=== PATIENT | female | born 1930 | race Caucasian/White ===

== ENCOUNTER 2016-05-09 13:26 | Inpatient (IN) | payer OTHER, BC ==
[~2016-05-09] VITALS: Ht 147.3 cm; Wt 97.1 kg
[~2016-05-09 13:26] MED LIST: ALBUTEROL2.5 MG/3 M IH; AMILORIDE HCL5 MG PO; AMLODIPINE BESYL5 MG PO; AMOXICILLIN875 MG PO; BICARSIM FORTE125 MG PO; BREO ELLIPTA 21 EACH IH; BREO ELLIPTA I1 EACH IH; BUMETANIDE1 MG PO; BUMETANIDE2 MG PO; BUMEX1 MG PO; CALCIUM 600 +1 EA10 PO; CALCIUM 600 +1 EA11 PO; CALCIUM 600 +1 EAC2 PO; CALCIUM 600 +1 EAC7 PO; CARDIZEM120 MG PO; CEFDINIR300 MG PO; CELEXA10 MG PO; CLARITIN,ALAVAR10 MG PO; CLARITIN10 MG PO; CLODERM TP; Cardizem CD,Cartia X PO; Claritin,Alavart PO; DALIRESP500 MCG PO; DUONEB 2.5-0.5 M3 ML AEROSOL; DUONEB 2.5-0.5 M3 ML IH; DuoNeb IH; ELIQUIS2.5 MG PO; EPOGEN,PRO20000 UNIT IV; EPOGEN,PRO20000 UNIT SC; EXTRA STRENGTH500 M1 PO; FENTANYL1 EAC5 TD; FERROUS SULFAT325 MG PO; FLONASE16 G1 BOTH NARES; FLORASTOR250 MG PO; FUROSEMIDE20 MG PO; GAS FREE125 MG PO; IMDUR30 MG PO; IMURAN50 MG PO; Imdur PO; K-DUR20 MEQ; K-DUR20 MEQ PO; KERLONE10 MG PO; KLOR-CON M2020 MEQ PO; LASIX20 MG PO; LASIX40 MG PO; LEVAQUIN250 MG PO; LEVO-T125 MCG PO; LEVO-T137 MCG PO; LEVOTHYROXINE100 MCG PO; LOMOTIL TABLET1 EACH PO; LORATADINE10 M2 PO; Lasix PO; Lomotil,Lonox PO; METHENAMINE HIPP1 G1 PO; METHENAMINE HIPP1 GM PO; MICRO-K10 ME2 PO; MIRALAX17 GM PO; MUCINEX600 MG PO; MYCOSTATIN 100,60 ML PO; Micro-K,K-Tab,K-Dur, PO; Monopril PO; OMEGA-31000 MG PO; OMEPRAZOLE40 M1 PO; ONE DAILY1 EAC2 PO; OSCAL, OYSTER500 MG; OXYCODONE HCL10 MG PO; OXYCODONE HCL15 MG PO; Oscal 500 w/Vitamin PO; PAIN RELIEF650 MG PO; PERCOCET 5/31 TABLET PO; PRILOSEC40 MG PO; PROBIOTIC FORM1 EAC1 PO; PROCRIT10000 UNI1 SC; REFRESH OPTIVE10 ML BOTH EYES; REFRESH TEARS15 ML BOTH EYES; ROBITUSSIN DM118 ML PO; SENOKOT S,PE1 TABLET PO; SIMETHICONE125 M1 PO; TEARS NATURALE-15 ML BOTH EYES; TYLENOL ARTHRI650 MG PO; TYLENOL EXTRA500 MG PO; TYLENOL REGULA325 MG PO; Tears Naturale II,Ar BOTH EYES; Theragran PO; Tylenol Extra Streng PO; XOPENEX1.25 MG/3 IH; Xarelto PO; ZOFRAN4 MG PO
[2016-05-09 14:35] LABS: BASOPHIL COUNT 0.1 K/uL (0-0.1); EOSINOPHIL (%) 0.4 % (0-5); EOSINOPHIL COUNT 0.1 K/uL (0-0.3); IMMATURE GRANULOCYTE (%) 2.4 % (0.0-0.7); IMMATURE GRANULOCYTE COUNT 0.7 K/uL; INSTRUMENT ABS NEUTROPHIL CT 27.7 K/uL; LYMPHOCYTE COUNT 0.8 K/uL (1.0-2.8); MEAN PLAT.VOLUME 8.6 uM^3 (9.5-12.4); MONOCYTE (%) 2.9 % (3-12); MONOCYTE COUNT 0.9 K/uL (0-0.8); NEUTROPHIL (%) 91.3 % (45-76); NEUTROPHIL COUNT 27.7 K/uL (1.8-6.4); PLATELET COUNT 640 K/uL (156-360)
[2016-05-09 14:44] LABS: CHLORIDE 95 mEq/L (99-109); POTASSIUM 3.9 mEq/L (3.7-5.4)
[2016-05-09 14:45] LABS: HEMATOCRIT 30.7 % (36.0-46.0); MCH 26.6 PG (29.0-34.0); MCHC 29.6 G/DL (30.0-36.0); MCV 89.8 FL (83-99); RBC DIS.WIDTH-CV 15.1 % (11.8-14.6); RBC DIS.WIDTH-SD 50.1 % (39-53); RED BLOOD COUNT 3.42 M/uL (3.80-5.20); SODIUM 136 mEq/L (136-147)
[2016-05-09 14:46] LABS: GLUCOSE 124 mg/dL (70-99)
[2016-05-09 14:48] LABS: ANION GAP 11 MEQ/L (2-14); WHITE BLOOD COUNT 30.3 K/uL (4.1-10.2)
[2016-05-09 14:50] LABS: GFR ESTIMATE (CALCULATED) > 59 mL/min/
[2016-05-09 14:51] LABS: UREA NITROGEN (BUN) 26 mg/dL (9-23)
[2016-05-09 15:42] LABS: ADD MIUA? YES; BILIRUBIN NEGATIVE; BLOOD NEGATIVE; COLOR YELLOW ((YELLOW)); GLUCOSE (STRIP) NEGATIVE; KETONES NEGATIVE; LEUKOCYTES TRACE; NITRITE NEGATIVE; PROTEIN (STRIP) NEGATIVE; SPECIFIC GRAVITY 1.009 (1.000-1.030); UROBILINOGEN 0.2 MG/DL (0.2-1.0)
[2016-05-09 15:48] LABS: BACTERIA NONE SEEN /HPF; EPITHELIAL CELLS RARE /HPF; HYALINE CASTS 0-5 /LPF; MUCUS TRACE /LPF; RED BLOOD CELLS 0-5 /HPF (0-5); WHITE BLOOD CELLS 0-5 /HPF (0-5)
[2016-05-09] MEDS ORDERED: BENGAY VANISHIN57 GM TP (16:37)
[2016-05-09] MEDS ORDERED: B COMPLETE1 EACH PO (16:39)
[2016-05-09] MEDS ORDERED: BUMEX2 MG PO ×2 (16:42)
[2016-05-09] MEDS ORDERED: LEVO-T150 MCG PO (16:46)
[2016-05-09] MEDS ORDERED: KLOR-CON M2020 MEQ PO (16:48)
[2016-05-09] MEDS ORDERED: PROCRIT2000 UNIT1 IV (16:50)
[2016-05-09] MEDS ORDERED: TYLENOL EXTRA500 MG PO (16:51)
[2016-05-09] MEDS ORDERED: CYANOCOBALAM1000 MCG PO (16:52)
[2016-05-09] MEDS ORDERED: CIPRO500 MG PO (16:54)
[2016-05-09] MEDS ORDERED: ELIQUIS2.5 MG PO (16:55)
[2016-05-09] MEDS ORDERED: DUONEB 2.5-0.5 M3 ML AEROSOL (17:02)
[2016-05-09] MEDS ORDERED: CEPACOL SORE T1 EAC9 MM (17:02)
[2016-05-09] MEDS ORDERED: MIRALAX17 GM PO (17:03)
[2016-05-09] MEDS ORDERED: ALUM-MAG HYDRO360 ML PO (17:04)
[2016-05-09] MEDS ORDERED: NYSTATIN100000 UN1 PO (17:05)
[2016-05-09] MEDS ORDERED: BUMEX1 MG PO (17:27)
[2016-05-09 19:35] VITALS: BP 134/70
[2016-05-10 00:02] VITALS: BP 140/68
[2016-05-10 04:04] VITALS: BP 144/66
[2016-05-10 06:44] LABS: HEMATOCRIT 30.8 % (36.0-46.0); MCH 26.6 PG (29.0-34.0); MCHC 29.5 G/DL (30.0-36.0); MCV 90.1 FL (83-99); MEAN PLAT.VOLUME 8.8 uM^3 (9.5-12.4); PLATELET COUNT 672 K/uL (156-360); RBC DIS.WIDTH-CV 15.3 % (11.8-14.6); RBC DIS.WIDTH-SD 50.7 % (39-53); RED BLOOD COUNT 3.42 M/uL (3.80-5.20); WHITE BLOOD COUNT 27.1 K/uL (4.1-10.2)
[2016-05-10 08:12] VITALS: BP 117/79
[2016-05-10 10:58] LABS: ABS NEUTROPHIL COUNT 25.5; EOSINOPHIL ABS CT 0.1; EOSINOPHILS 0.5 % (0-5.0); INSTRUMENT ABS NEUTROPHIL CT 24.3 K/uL; LYMPHOCYTES 3.5 % (15.0-45.0)
[2016-05-10 11:09] VITALS: BP 102/57
[2016-05-10 15:59] LABS: IRON 28 MCG/DL (35-150)
[2016-05-10 16:37] VITALS: BP 125/69
[2016-05-10 20:00] VITALS: BP 114/69
[2016-05-11 04:37] VITALS: BP 121/76
[2016-05-11 07:50] LABS: BASOPHIL COUNT 0.1 K/uL (0-0.1); EOSINOPHIL (%) 0.9 % (0-5); EOSINOPHIL COUNT 0.2 K/uL (0-0.3); HEMATOCRIT 28.9 % (36.0-46.0); IMMATURE GRANULOCYTE (%) 1.9 % (0.0-0.7); IMMATURE GRANULOCYTE COUNT 0.5 K/uL; INSTRUMENT ABS NEUTROPHIL CT 21.5 K/uL; LYMPHOCYTE COUNT 1.1 K/uL (1.0-2.8); MCHC 30.4 G/DL (30.0-36.0); MCV 88.7 FL (83-99); MONOCYTE (%) 4.4 % (3-12); MONOCYTE COUNT 1.1 K/uL (0-0.8); NEUTROPHIL COUNT 21.5 K/uL (1.8-6.4); RBC DIS.WIDTH-CV 15.5 % (11.8-14.6); RBC DIS.WIDTH-SD 49.8 % (39-53); RED BLOOD COUNT 3.26 M/uL (3.80-5.20); WHITE BLOOD COUNT 24.5 K/uL (4.1-10.2)
[2016-05-11 07:59] VITALS: BP 122/70
[2016-05-11 08:44] LABS: PLAT.SUFFICIENCY INCREASED
[2016-05-11 08:55] LABS: PLATELET COUNT UNABLE TO REPORT K/uL (156-360)
[2016-05-11 11:19] VITALS: BP 106/58
[2016-05-11 15:05] VITALS: BP 145/69
[2016-05-11 19:37] VITALS: BP 111/54
[2016-05-11 23:26] VITALS: BP 129/63
[2016-05-12 03:45] VITALS: BP 132/86
[2016-05-12 07:30] VITALS: BP 150/73
[2016-05-12 07:53] LABS: ANION GAP 9 MEQ/L (2-14); CHLORIDE 96 MEQ/L (99-109); GFR ESTIMATE (CALCULATED) > 59 mL/min/; GLUCOSE 95 mg/dL (70-99); POTASSIUM 3.5 MEQ/L (3.7-5.4); SAMPLE HEMOLYSIS CHECK 0; SAMPLE ICTERIC CHECK 0; SAMPLE LIPEMIA CHECK 0; SODIUM 141 MEQ/L (136-147); UREA NITROGEN (BUN) 24 mg/dL (9-23)
[2016-05-12 08:16] LABS: BASOPHIL COUNT 0.1 K/uL (0-0.1); EOSINOPHIL (%) 0.5 % (0-5); EOSINOPHIL COUNT 0.1 K/uL (0-0.3); HEMATOCRIT 31.2 % (36.0-46.0); IMMATURE GRANULOCYTE (%) 1.8 % (0.0-0.7); IMMATURE GRANULOCYTE COUNT 0.5 K/uL; INSTRUMENT ABS NEUTROPHIL CT 22.9 K/uL; MCH 27.1 PG (29.0-34.0); MCHC 30.4 G/DL (30.0-36.0); MCV 89.1 FL (83-99); MEAN PLAT.VOLUME 8.8 uM^3 (9.5-12.4); NEUTROPHIL (%) 89.5 % (45-76); NEUTROPHIL COUNT 22.9 K/uL (1.8-6.4); RBC DIS.WIDTH-CV 15.4 % (11.8-14.6); WHITE BLOOD COUNT 25.6 K/uL (4.1-10.2)
[2016-05-12 11:00] VITALS: BP 119/65
[2016-05-12 13:15] VITALS: BP 140/69
[2016-05-12 19:33] VITALS: BP 135/60
[2016-05-12 23:20] VITALS: BP 113/57
[2016-05-13 03:13] VITALS: BP 152/69
[2016-05-13 07:52] LABS: HEMATOCRIT 28.1 % (36.0-46.0); MCH 26.8 PG (29.0-34.0); MCHC 29.9 G/DL (30.0-36.0); MCV 89.8 FL (83-99); RBC DIS.WIDTH-CV 15.6 % (11.8-14.6); RBC DIS.WIDTH-SD 50.9 % (39-53); RED BLOOD COUNT 3.13 M/uL (3.80-5.20); WHITE BLOOD COUNT 24.1 K/uL (4.1-10.2)
[2016-05-13 07:59] LABS: ANION GAP 7 MEQ/L (2-14); CHLORIDE 95 MEQ/L (99-109); DIRECT BILIRUBIN 0.1 mg/dL (0.0-0.3); SAMPLE HEMOLYSIS CHECK 1; SAMPLE ICTERIC CHECK 0; SAMPLE LIPEMIA CHECK 0; SODIUM 138 MEQ/L (136-147); TOTAL BILIRUBIN 0.4 MG/DL (0.0-1.0)
[2016-05-13 08:05] LABS: ALKALINE PHOSPHATASE 143 IU/L (3-129); GFR ESTIMATE (CALCULATED) > 59 mL/min/; GLUCOSE 87 mg/dL (70-99); UREA NITROGEN (BUN) 21 mg/dL (9-23)
[2016-05-13 09:02] VITALS: BP 125/65
[2016-05-13 10:44] LABS: MEAN PLAT.VOLUME 9.1 uM^3 (9.5-12.4)
[2016-05-13 10:45] LABS: PLATELET COUNT 583 K/uL (156-360)
[2016-05-13 11:30] VITALS: BP 145/92
[2016-05-13 17:00] VITALS: BP 106/55
[2016-05-13 20:00] VITALS: BP 113/57
[2016-05-14] VITALS (7 sets, daily range): BP systolic 109–145; BP diastolic 56–78
[2016-05-15 04:13] VITALS: BP 126/59
[2016-05-15 07:02] LABS: ANION GAP 8 MEQ/L (2-14); CHLORIDE 94 MEQ/L (99-109); GFR ESTIMATE (CALCULATED) > 59 mL/min/; GLUCOSE 88 mg/dL (70-99); SAMPLE HEMOLYSIS CHECK 1; SAMPLE ICTERIC CHECK 0; SAMPLE LIPEMIA CHECK 0; SODIUM 136 MEQ/L (136-147); UREA NITROGEN (BUN) 23 mg/dL (9-23)
[2016-05-15 07:03] LABS: POTASSIUM 4.1 MEQ/L (3.7-5.4)
[2016-05-15 08:37] VITALS: BP 161/67
[2016-05-15 08:50] LABS: MCH 26.6 PG (29.0-34.0); MCHC 29.7 G/DL (30.0-36.0); MCV 89.8 FL (83-99); MEAN PLAT.VOLUME 8.8 uM^3 (9.5-12.4); PLATELET COUNT 631 K/uL (156-360); RBC DIS.WIDTH-CV 15.4 % (11.8-14.6); RBC DIS.WIDTH-SD 50.4 % (39-53); RED BLOOD COUNT 3.34 M/uL (3.80-5.20); WHITE BLOOD COUNT 22.2 K/uL (4.1-10.2)
[2016-05-15 11:54] VITALS: BP 110/59
[2016-05-15 17:02] VITALS: BP 121/60
[2016-05-15 20:02] VITALS: BP 114/61
[2016-05-16] VITALS: BP 99/54
[2016-05-16 04:18] VITALS: BP 129/69
[2016-05-16 08:15] VITALS: BP 130/68
[2016-05-16 16:13] VITALS: BP 121/63
[2016-05-16 16:42] LABS: Flow Number of Markers 22 (()); Flow Spec Viability 99 % (()); Flow Specimen Type PERIPHERAL BLOOD (())
[2016-05-16 20:00] VITALS: BP 117/57
[2016-05-17] VITALS: BP 132/67
[2016-05-17 04:00] VITALS: BP 146/77
[2016-05-17 07:55] VITALS: BP 124/63
[2016-05-17 11:04] VITALS: BP 111/59
[2016-05-17] MEDS ORDERED: OXYCODONE HCL15 MG PO (13:14)
[2016-05-17] MEDS ORDERED: FENTANYL1 EAC5 TD (13:14)
[2016-05-17] MEDS ORDERED: PERCOCET 5/31 TABLET PO (13:14)
[2016-05-17] MEDS ORDERED: OXYCODONE HCL10 MG PO (13:14)
[2016-05-17 15:30] VITALS: BP 97/51
== END 2016-05-17 20:03 | DRG 375 ==
LOC: EME 13:26 → EDOF 17:00 → 5SOUTH 17:00
PROVIDERS: Emergency Medicine; Internal Medicine; Nurse Practitioner Adult Health
DX: C18.2 Malignant neoplasm of ascending colon (principal); I13.0 Hypertensive heart and chronic kidney disease with heart failure and stage 1 through stage 4 chronic kidney disease, or unspecified chronic kidney disease; I50.32 Chronic diastolic (congestive) heart failure; N18.3 Chronic kidney disease, stage 3 (moderate); D72.829 Elevated white blood cell count, unspecified; D47.2 Monoclonal gammopathy; D50.9 Iron deficiency anemia, unspecified; J44.9 Chronic obstructive pulmonary disease, unspecified; I48.2 Chronic atrial fibrillation; Z79.01 Long term (current) use of anticoagulants; E66.01 Morbid (severe) obesity due to excess calories; Z68.44 Body mass index [BMI] 60.0-69.9, adult; K57.30 Diverticulosis of large intestine without perforation or abscess without bleeding; I71.2 Thoracic aortic aneurysm, without rupture; K21.9 Gastro-esophageal reflux disease without esophagitis; M10.9 Gout, unspecified; M81.0 Age-related osteoporosis without current pathological fracture; M19.90 Unspecified osteoarthritis, unspecified site; M06.9 Rheumatoid arthritis, unspecified; Z74.01 Bed confinement status; Z96.641 Presence of right artificial hip joint; Z87.891 Personal history of nicotine dependence
CPT/HCPCS: 71020; 71250; 71270; 74176; 80048; 80076; 81003; 82378; 83540; 83605; 84466; 85007; 85025; 85027; 85060; 85730; 87040; 88184 90; 88185 90; 88189 90; 88305; 88341 TC; 88342 TC; 93970; 93971; 94640; 94640 76; 94799; 99202; 99281; 99285; J1644; J2405

== ENCOUNTER 2016-07-19 04:21 | Inpatient (IN) | payer OTHER, BC ==
[~2016-07-19] VITALS: Ht 152.4 cm; Wt 99.1 kg
[~2016-07-19 04:21] MED LIST changes: +ALUM-MAG HYDRO360 ML PO; +B COMPLETE1 EACH PO; +BENGAY VANISHIN57 GM TP; +BUMEX2 MG PO; +CEPACOL SORE T1 EAC9 MM; +CIPRO500 MG PO; +CYANOCOBALAM1000 MCG PO; +LEVO-T150 MCG PO; +NYSTATIN100000 UN1 PO; +PROCRIT2000 UNIT1 IV
[2016-07-19 04:39] LABS: HEMATOCRIT 31.1 % (36.0-46.0); MCH 28.1 PG (29.0-34.0); MCHC 30.2 G/DL (30.0-36.0); MCV 93.1 FL (83-99); MEAN PLAT.VOLUME 8.5 uM^3 (9.5-12.4); PLATELET COUNT 639 K/uL (156-360); RBC DIS.WIDTH-CV 16.1 % (11.8-14.6); RBC DIS.WIDTH-SD 55.8 % (39-53); RED BLOOD COUNT 3.34 M/uL (3.80-5.20); WHITE BLOOD COUNT 16.7 K/uL (4.1-10.2)
[2016-07-19 04:48] LABS: CHLORIDE 96 mEq/L (99-109); POTASSIUM 3.7 mEq/L (3.7-5.4); SODIUM 137 mEq/L (136-147)
[2016-07-19 04:50] LABS: GLUCOSE 215 mg/dL (70-99); INTER. NORMALIZED RATIO 1.1; PROTHROMBIN TIME 10.9 (9.2-11.2); PTT 28.2 (25-32)
[2016-07-19 04:51] LABS: ANION GAP 11 MEQ/L (2-14)
[2016-07-19 04:52] LABS: TOTAL BILIRUBIN 0.3 mg/dL (0.0-1.0)
[2016-07-19 04:53] LABS: ALKALINE PHOSPHATASE 188 IU/L (3-129)
[2016-07-19 04:54] LABS: GFR ESTIMATE (CALCULATED) > 59 mL/min/
[2016-07-19 04:55] LABS: UREA NITROGEN (BUN) 17 mg/dL (9-23)
[2016-07-19 04:57] LABS: LIPASE 11 U/L (1.0-51.0)
[2016-07-19 05:05] LABS: BASE EXCESS 7.5 mEq/L (-3 to +3); BICARBONATE 32.6 mEq/L (22-26); CARBOXY HGB 1.7 % (0-5); COMMENTS - BLOOD GASES C+; DEVICE PB840; FI02 100 %; METHEMOGLOBIN 1.3 % (0-1.5); MODE SPON; PCO2 48 mm Hg (35-45); PEEP 5 CM/H20; PO2 274 mm Hg (80-100); PRES. SUPPORT 15 CM/H2O; SITE RR; TOTAL RESP RATE 15 resp/min; pH 7.44 (7.35-7.45)
[2016-07-19 05:35] LABS: ADD MIUA? YES; BILIRUBIN NEGATIVE; BLOOD SMALL; COLOR YELLOW ((YELLOW)); GLUCOSE (STRIP) NEGATIVE; KETONES NEGATIVE; LEUKOCYTES LARGE; NITRITE NEGATIVE; PROTEIN (STRIP) NEGATIVE; SPECIFIC GRAVITY 1.008 (1.000-1.030); UROBILINOGEN 0.2 MG/DL (0.2-1.0)
[2016-07-19 05:56] LABS: BACTERIA 2+ /HPF; CASTS PRESENT /LPF; CRYSTALS NONE SEEN; EPITHELIAL CELLS 2+ /HPF; MUCUS 1+ /LPF; UCUL ADDED? YES; WHITE BLOOD CELLS TNTC /HPF (0-5)
[2016-07-19 06:02] LABS: HYALINE CASTS 0-5 /LPF
[2016-07-19 11:02] LABS: TROP-I INTERPRETATION INDETERMINATE; TROPONIN-I 0.42 ng/mL (0.0-0.30)
[2016-07-19] MEDS ORDERED: LIDODERM 5% P1 PATCH TD (11:11)
[2016-07-19] MEDS ORDERED: PANTOPRAZOLE SO40 MG PO (11:12)
[2016-07-19] MEDS ORDERED: EPOGEN,PRO20000 UNIT IM (11:14)
[2016-07-19] MEDS ORDERED: VITAMIN B-12250 MCG PO (11:15)
[2016-07-19] MEDS ORDERED: OXYCODONE HCL10 MG PO (11:17)
[2016-07-19] MEDS ORDERED: CARDIZEM30 MG PO (11:17)
[2016-07-19] MEDS ORDERED: CYCLOBENZAPRINE10 MG PO (11:19)
[2016-07-19] MEDS ORDERED: PERCOCET 5/31 TABLET PO (11:21)
[2016-07-19] MEDS ORDERED: TUMS500 MG PO (11:22)
[2016-07-19] MEDS ORDERED: SIMETHICONE80 MG PO (11:22)
[2016-07-19 12:45] VITALS: BP 127/58
[2016-07-19 17:14] LABS: TROP-I INTERPRETATION POSITIVE
[2016-07-19 17:43] VITALS: BP 96/60
[2016-07-19 18:36] LABS: METH RESISTANT S AUREUS PCR POSITIVE (NEGATIVE)
[2016-07-19 18:51] LABS: PROBE CHECK PASS
[2016-07-19 20:15] VITALS: BP 106/57
[2016-07-19 21:21] LABS: POINT-OF-CARE METER ID UU13113781
[2016-07-19 23:15] LABS: TROP-I INTERPRETATION POSITIVE; TROPONIN-I 1.83 ng/mL (0.0-0.30)
[2016-07-20 00:38] VITALS: BP 114/51
[2016-07-20 05:18] VITALS: BP 116/69
[2016-07-20 06:34] LABS: TROP-I INTERPRETATION POSITIVE; TROPONIN-I 1.37 ng/mL (0.0-0.30)
[2016-07-20 07:19] LABS: HEMATOCRIT 28.8 % (36.0-46.0); MCH 28.2 PG (29.0-34.0); MCHC 30.6 G/DL (30.0-36.0); MCV 92.3 FL (83-99); MEAN PLAT.VOLUME 9.1 uM^3 (9.5-12.4); PLATELET COUNT 592 K/uL (156-360); RBC DIS.WIDTH-CV 16.1 % (11.8-14.6); RBC DIS.WIDTH-SD 54.9 % (39-53); RED BLOOD COUNT 3.12 M/uL (3.80-5.20)
[2016-07-20 07:25] LABS: WHITE BLOOD COUNT 11.6 K/uL (4.1-10.2)
[2016-07-20 07:44] LABS: ANION GAP 14 MEQ/L (2-14); CHLORIDE 93 MEQ/L (99-109); GFR ESTIMATE (CALCULATED) 45 mL/min/; GLUCOSE 130 mg/dL (70-99); POTASSIUM 4.3 MEQ/L (3.7-5.4); SAMPLE HEMOLYSIS CHECK 0; SAMPLE ICTERIC CHECK 0; SAMPLE LIPEMIA CHECK 0; SODIUM 136 MEQ/L (136-147); UREA NITROGEN (BUN) 21 mg/dL (9-23)
[2016-07-20 07:50] VITALS: BP 117/66
[2016-07-20 12:35] VITALS: BP 98/55
[2016-07-20 16:50] VITALS: BP 112/73
[2016-07-20 19:49] VITALS: BP 121/66
[2016-07-21 01:00] VITALS: BP 124/70
[2016-07-21 05:12] VITALS: BP 128/73
[2016-07-21 08:09] VITALS: BP 129/75
[2016-07-21 11:04] LABS: HEMATOCRIT 31.6 % (36.0-46.0); MCH 28.3 PG (29.0-34.0); MCHC 30.4 G/DL (30.0-36.0); MCV 93.2 FL (83-99); MEAN PLAT.VOLUME 9.1 uM^3 (9.5-12.4); NRBC (%) 0.2 /100 WBC (0-0); PLATELET COUNT 532 K/uL (156-360); RBC DIS.WIDTH-CV 16.1 % (11.8-14.6); RBC DIS.WIDTH-SD 55.2 % (39-53); RED BLOOD COUNT 3.39 M/uL (3.80-5.20); WHITE BLOOD COUNT 13.2 K/uL (4.1-10.2)
[2016-07-21 11:34] LABS: ANION GAP 15 MEQ/L (2-14); CHLORIDE 96 MEQ/L (99-109); POTASSIUM 4.5 MEQ/L (3.7-5.4); SAMPLE HEMOLYSIS CHECK 0; SAMPLE ICTERIC CHECK 0; SAMPLE LIPEMIA CHECK 0; SODIUM 137 MEQ/L (136-147)
[2016-07-21 11:40] LABS: GFR ESTIMATE (CALCULATED) 45 mL/min/; GLUCOSE 185 mg/dL (70-99); UREA NITROGEN (BUN) 29 mg/dL (9-23)
[2016-07-21 11:50] VITALS: BP 118/71
[2016-07-21 17:30] VITALS: BP 122/69
[2016-07-21 19:45] VITALS: BP 128/58
[2016-07-22 00:01] VITALS: BP 118/60
[2016-07-22 04:47] VITALS: BP 124/58
[2016-07-22 05:57] LABS: EOSINOPHIL (%) 0.1 % (0-5); HEMATOCRIT 26.8 % (36.0-46.0); IMMATURE GRANULOCYTE (%) 1.9 % (0.0-0.7); IMMATURE GRANULOCYTE COUNT 0.2 K/uL; INSTRUMENT ABS NEUTROPHIL CT 9.8 K/uL; LYMPHOCYTE COUNT 0.3 K/uL (1.0-2.8); MCH 28.6 PG (29.0-34.0); MCHC 30.2 G/DL (30.0-36.0); MCV 94.7 FL (83-99); MONOCYTE (%) 3.3 % (3-12); MONOCYTE COUNT 0.4 K/uL (0-0.8); NEUTROPHIL (%) 91.8 % (45-76); NEUTROPHIL COUNT 9.8 K/uL (1.8-6.4); NRBC (%) 0.4 /100 WBC (0-0); RBC DIS.WIDTH-CV 16.4 % (11.8-14.6); RBC DIS.WIDTH-SD 56.5 % (39-53); RED BLOOD COUNT 2.83 M/uL (3.80-5.20); WHITE BLOOD COUNT 10.6 K/uL (4.1-10.2)
[2016-07-22 07:33] LABS: MEAN PLAT.VOLUME 9.3 uM^3 (9.5-12.4); PLAT.SUFFICIENCY ADEQUATE; PLATELET COUNT 451 K/uL (156-360)
[2016-07-22 07:53] LABS: ANION GAP 13 MEQ/L (2-14); CHLORIDE 96 MEQ/L (99-109); GFR ESTIMATE (CALCULATED) 41 mL/min/; GLUCOSE 126 mg/dL (70-99); POTASSIUM 3.9 MEQ/L (3.7-5.4); SAMPLE HEMOLYSIS CHECK 0; SAMPLE ICTERIC CHECK 0; SAMPLE LIPEMIA CHECK 0; SODIUM 138 MEQ/L (136-147); UREA NITROGEN (BUN) 29 mg/dL (9-23)
[2016-07-22 08:49] VITALS: BP 118/82
[2016-07-22 10:55] LABS: DIGOXIN 2.5 ng/mL (0.8-2.0)
[2016-07-22 11:37] VITALS: BP 112/68
[2016-07-22 15:49] LABS: C DIFF TOXIN POSITIVE (NEGATIVE)
[2016-07-22 15:51] LABS: PROBE CHECK PASS
[2016-07-22 15:57] VITALS: BP 122/64
[2016-07-22 21:35] VITALS: BP 118/58
[2016-07-23 01:06] VITALS: BP 118/58
[2016-07-23 04:50] VITALS: BP 129/59
[2016-07-23 07:16] LABS: ANION GAP 15 MEQ/L (2-14); CHLORIDE 94 MEQ/L (99-109); GFR ESTIMATE (CALCULATED) 41 mL/min/; POTASSIUM 4.2 MEQ/L (3.7-5.4); SAMPLE HEMOLYSIS CHECK 1; SAMPLE ICTERIC CHECK 0; SAMPLE LIPEMIA CHECK 0; SODIUM 136 MEQ/L (136-147); UREA NITROGEN (BUN) 38 mg/dL (9-23)
[2016-07-23 07:23] LABS: GLUCOSE 80 mg/dL (70-99)
[2016-07-23 08:15] VITALS: BP 116/64
[2016-07-23 12:17] VITALS: BP 110/62
[2016-07-23 16:30] VITALS: BP 108/64
[2016-07-23 19:30] VITALS: BP 132/64
[2016-07-24] VITALS (7 sets, daily range): BP systolic 121–148; BP diastolic 55–72
[2016-07-24 06:11] LABS: HEMATOCRIT 29.2 % (36.0-46.0); MCH 28.2 PG (29.0-34.0); MCHC 29.8 G/DL (30.0-36.0); MCV 94.5 FL (83-99); MEAN PLAT.VOLUME 8.9 uM^3 (9.5-12.4); NRBC (%) 1.1 /100 WBC (0-0); PLATELET COUNT 454 K/uL (156-360); RBC DIS.WIDTH-CV 16.4 % (11.8-14.6); RBC DIS.WIDTH-SD 56.1 % (39-53); RED BLOOD COUNT 3.09 M/uL (3.80-5.20)
[2016-07-24 06:14] LABS: ANION GAP 13 MEQ/L (2-14); CHLORIDE 95 MEQ/L (99-109); GFR ESTIMATE (CALCULATED) 45 mL/min/; POTASSIUM 3.8 MEQ/L (3.7-5.4); SAMPLE HEMOLYSIS CHECK 0; SAMPLE ICTERIC CHECK 0; SAMPLE LIPEMIA CHECK 0; SODIUM 138 MEQ/L (136-147); UREA NITROGEN (BUN) 45 mg/dL (9-23)
[2016-07-24 06:16] LABS: GLUCOSE 118 mg/dL (70-99)
[2016-07-25 03:52] VITALS: BP 140/65
[2016-07-25 06:49] LABS: ANION GAP 12 MEQ/L (2-14); CHLORIDE 92 MEQ/L (99-109); GFR ESTIMATE (CALCULATED) 45 mL/min/; GLUCOSE 109 mg/dL (70-99); POTASSIUM 3.6 MEQ/L (3.7-5.4); SAMPLE HEMOLYSIS CHECK 0; SAMPLE ICTERIC CHECK 0; SAMPLE LIPEMIA CHECK 0; SODIUM 137 MEQ/L (136-147); UREA NITROGEN (BUN) 50 mg/dL (9-23)
[2016-07-25 08:02] LABS: DIGOXIN 1.3 ng/mL (0.8-2.0)
[2016-07-25 08:47] LABS: HEMATOCRIT 32.9 % (36.0-46.0); MCH 27.8 PG (29.0-34.0); MCHC 30.1 G/DL (30.0-36.0); MCV 92.4 FL (83-99); MEAN PLAT.VOLUME 8.6 uM^3 (9.5-12.4); NRBC (%) 0.7 /100 WBC (0-0); PLATELET COUNT 577 K/uL (156-360); RBC DIS.WIDTH-CV 16.6 % (11.8-14.6); RED BLOOD COUNT 3.56 M/uL (3.80-5.20); WHITE BLOOD COUNT 24.3 K/uL (4.1-10.2)
[2016-07-25 08:55] VITALS: BP 151/67
[2016-07-25 11:45] VITALS: BP 144/67
[2016-07-25 16:00] VITALS: BP 164/70
[2016-07-25 19:26] LABS: ADD MIUA? YES; BILIRUBIN NEGATIVE; BLOOD NEGATIVE; COLOR STRAW ((YELLOW)); GLUCOSE (STRIP) NEGATIVE; KETONES NEGATIVE; LEUKOCYTES SMALL; NITRITE NEGATIVE; PROTEIN (STRIP) NEGATIVE; SPECIFIC GRAVITY 1.006 (1.000-1.030); UROBILINOGEN 0.2 MG/DL (0.2-1.0)
[2016-07-25 19:48] LABS: BACTERIA RARE /HPF; BUDDING YEAST 1+; EPITHELIAL CELLS RARE /HPF; HYALINE CASTS 0-5 /LPF; MUCUS NONE SEEN /LPF; RED BLOOD CELLS TNTC /HPF (0-5); UCUL ADDED? NO
[2016-07-25 20:00] VITALS: BP 130/60
[2016-07-25 23:55] VITALS: BP 133/62
[2016-07-26 04:04] VITALS: BP 167/77
[2016-07-26 08:00] VITALS: BP 140/65
[2016-07-26 09:54] LABS: HEMATOCRIT 32.4 % (36.0-46.0); MCH 28.5 PG (29.0-34.0); MCHC 31.2 G/DL (30.0-36.0); MCV 91.5 FL (83-99); MEAN PLAT.VOLUME 9.3 uM^3 (9.5-12.4); NRBC (%) 0.9 /100 WBC (0-0); PLATELET COUNT 576 K/uL (156-360); RBC DIS.WIDTH-SD 57.1 % (39-53); RED BLOOD COUNT 3.54 M/uL (3.80-5.20); WHITE BLOOD COUNT 24.4 K/uL (4.1-10.2)
[2016-07-26 12:24] VITALS: BP 116/58
[2016-07-26 16:00] VITALS: BP 123/66
[2016-07-26 20:00] VITALS: BP 129/60
[2016-07-26 23:55] VITALS: BP 141/63
[2016-07-27 04:11] VITALS: BP 178/77
[2016-07-27 05:42] LABS: HEMATOCRIT 30.5 % (36.0-46.0); MCH 27.5 PG (29.0-34.0); MCHC 29.8 G/DL (30.0-36.0); MCV 92.1 FL (83-99); MEAN PLAT.VOLUME 8.9 uM^3 (9.5-12.4); NRBC (%) 0.3 /100 WBC (0-0); PLATELET COUNT 482 K/uL (156-360); RBC DIS.WIDTH-CV 17.1 % (11.8-14.6); RBC DIS.WIDTH-SD 57.6 % (39-53); RED BLOOD COUNT 3.31 M/uL (3.80-5.20); WHITE BLOOD COUNT 19.2 K/uL (4.1-10.2)
[2016-07-27 06:24] LABS: ANION GAP 8 MEQ/L (2-14); CHLORIDE 90 MEQ/L (99-109); GFR ESTIMATE (CALCULATED) 50 mL/min/; POTASSIUM 3.6 MEQ/L (3.7-5.4); SAMPLE HEMOLYSIS CHECK 0; SAMPLE ICTERIC CHECK 0; SAMPLE LIPEMIA CHECK 0; SODIUM 137 MEQ/L (136-147); UREA NITROGEN (BUN) 47 mg/dL (9-23)
[2016-07-27 06:27] LABS: GLUCOSE 63 mg/dL (70-99)
[2016-07-27 09:09] VITALS: BP 131/60
[2016-07-27] MEDS ORDERED: VANCOCIN 250 M250 MG PO (10:29)
[2016-07-27] MEDS ORDERED: ACIDOPHILUS LA1 EACH PO (10:36)
[2016-07-27] MEDS ORDERED: MYCOSTATIN 100,60 ML PO (10:36)
[2016-07-27] MEDS ORDERED: ADVAIR HFA120 INHALA IH (10:36)
[2016-07-27] MEDS ORDERED: ASPIR-LOW81 MG PO (10:36)
[2016-07-27] MEDS ORDERED: DIGOXIN125 MCG PO (10:36)
[2016-07-27] MEDS ORDERED: ZINC OXIDE56.7 GM TP (10:36)
[2016-07-27] MEDS ORDERED: PREDNISONE10 MG PO (10:36)
[2016-07-27] MEDS ORDERED: LISINOPRIL5 MG PO (10:36)
[2016-07-27] MEDS ORDERED: K-DUR20 MEQ PO (10:36)
[2016-07-27] MEDS ORDERED: SPIRIVA RESPIMAT4 GM IH (10:36)
[2016-07-27] MEDS ORDERED: FUROSEMIDE80 MG PO (10:36)
[2016-07-27] MEDS ORDERED: Zeasorb Antifungal T TP (10:42)
[2016-07-27 13:21] VITALS: BP 112/56
[2016-07-27 17:03] VITALS: BP 119/59
[2016-07-27 20:30] VITALS: BP 135/61
[2016-07-27 23:37] VITALS: BP 135/63
[2016-07-28 05:48] LABS: HEMATOCRIT 29.4 % (36.0-46.0); MCH 29.1 PG (29.0-34.0); MCHC 31.6 G/DL (30.0-36.0); MCV 91.9 FL (83-99); MEAN PLAT.VOLUME 9.3 uM^3 (9.5-12.4); NRBC (%) 0.1 /100 WBC (0-0); PLATELET COUNT 474 K/uL (156-360); RBC DIS.WIDTH-CV 17.2 % (11.8-14.6)
[2016-07-28 06:19] LABS: ANION GAP 11 MEQ/L (2-14); CHLORIDE 90 MEQ/L (99-109); GFR ESTIMATE (CALCULATED) 45 mL/min/; GLUCOSE 70 mg/dL (70-99); POTASSIUM 3.8 MEQ/L (3.7-5.4); SAMPLE HEMOLYSIS CHECK 0; SAMPLE ICTERIC CHECK 0; SAMPLE LIPEMIA CHECK 0; SODIUM 138 MEQ/L (136-147); UREA NITROGEN (BUN) 54 mg/dL (9-23)
== END 2016-07-28 13:45 | DRG 189 ==
LOC: EME 04:21 → EDOF 09:43 → 4EAST 09:43
PROVIDERS: Emergency Medicine; Hospitalist; Internal Medicine; Internal Medicine Cardiovascular Disease; Physician Assistant Medical
PROC: 5A09358 Assistance with Respiratory Ventilation, Less than 24 Consecutive Hours, Intermittent Positive Airway Pressure (ICD-10-PCS; principal; 2016-07-19)
DX: J96.01 Acute respiratory failure with hypoxia (principal); I13.0 Hypertensive heart and chronic kidney disease with heart failure and stage 1 through stage 4 chronic kidney disease, or unspecified chronic kidney disease; I50.33 Acute on chronic diastolic (congestive) heart failure; J44.0 Chronic obstructive pulmonary disease with (acute) lower respiratory infection; J18.9 Pneumonia, unspecified organism; J44.1 Chronic obstructive pulmonary disease with (acute) exacerbation; A04.7 Enterocolitis due to Clostridium difficile; B37.0 Candidal stomatitis; L30.4 Erythema intertrigo; N18.3 Chronic kidney disease, stage 3 (moderate); I95.9 Hypotension, unspecified; I21.4 Non-ST elevation (NSTEMI) myocardial infarction; I48.2 Chronic atrial fibrillation; L89.322 Pressure ulcer of left buttock, stage 2; S90.822A Blister (nonthermal), left foot, initial encounter; I25.10 Atherosclerotic heart disease of native coronary artery without angina pectoris; I27.2 Other secondary pulmonary hypertension; M06.9 Rheumatoid arthritis, unspecified; E03.9 Hypothyroidism, unspecified; Y95 Nosocomial condition; Z66 Do not resuscitate; Z96.643 Presence of artificial hip joint, bilateral; E66.01 Morbid (severe) obesity due to excess calories; Z68.41 Body mass index [BMI] 40.0-44.9, adult; Z79.01 Long term (current) use of anticoagulants; Z85.038 Personal history of other malignant neoplasm of large intestine; Z87.891 Personal history of nicotine dependence; Z90.49 Acquired absence of other specified parts of digestive tract; Z99.81 Dependence on supplemental oxygen; Z74.01 Bed confinement status
CPT/HCPCS: 31720; 36600; 71010; 71250; 74177; 80048; 80048 91; 80053; 80162; 81003; 82803; 82948; 83605; 83690; 83880; 84145 90; 84484; 85025; 85027; 85610; 85730; 87040; 87070; 87086; 87103; 87106; 87205; 87493; 87641; 93005; 93306; 94002; 94010; 94640; 94640 76; 94760; 94799; 99202; 99281; 99285; J0456; J0696; J0881; J1160; J1940; J2405; J2543; J2930; J3370; J7050; J7512; J7644; S0028

== ENCOUNTER 2016-10-17 12:44 | Inpatient (IN) | payer OTHER, BC ==
[2016-10-17] VITALS (8 sets, daily range): BP systolic 106–146; BP diastolic 47–88
[~2016-10-17] VITALS: Ht 142.2 cm; Wt 88.3 kg
[~2016-10-17 12:44] MED LIST changes: +ACIDOPHILUS LA1 EACH PO; +ADVAIR HFA120 INHALA IH; +ASPIR-LOW81 MG PO; +CARDIZEM30 MG PO; +CYCLOBENZAPRINE10 MG PO; +DIGOXIN125 MCG PO; +FUROSEMIDE80 MG PO; +LIDODERM 5% P1 PATCH TD; +LISINOPRIL5 MG PO; +PANTOPRAZOLE SO40 MG PO; +PREDNISONE10 MG PO; +ROXICODONE5 MG PO; +SIMETHICONE80 MG PO; +SPIRIVA RESPIMAT4 GM IH; +TUMS500 MG PO; +VANCOCIN 250 M250 MG PO; +VITAMIN B-12250 MCG PO; +ZINC OXIDE56.7 GM TP; +Zeasorb Antifungal T TP
[2016-10-17 13:40] LABS: HEMATOCRIT 25.2 % (36.0-46.0); MCH 26.7 PG (29.0-34.0); MCHC 30.2 G/DL (30.0-36.0); MCV 88.4 FL (83-99); MEAN PLAT.VOLUME 7.7 uM^3 (9.5-12.4); PLATELET COUNT 410 K/uL (156-360); RBC DIS.WIDTH-CV 16.5 % (11.8-14.6); RBC DIS.WIDTH-SD 54.3 % (39-53); RED BLOOD COUNT 2.85 M/uL (3.80-5.20); WHITE BLOOD COUNT 21.9 K/uL (4.1-10.2)
[2016-10-17 13:48] LABS: CHLORIDE 94 mEq/L (99-109); POTASSIUM 5.3 mEq/L (3.7-5.4); SODIUM 131 mEq/L (136-147)
[2016-10-17 13:49] LABS: GLUCOSE 103 mg/dL (70-99)
[2016-10-17 13:51] LABS: ANION GAP 12 MEQ/L (2-14)
[2016-10-17 13:53] LABS: GFR ESTIMATE (CALCULATED) 25 mL/min/
[2016-10-17 13:54] LABS: UREA NITROGEN (BUN) 53 mg/dL (9-23)
[2016-10-17 17:29] LABS: ADD MIUA? YES; BILIRUBIN NEGATIVE; BLOOD NEGATIVE; COLOR YELLOW ((YELLOW)); GLUCOSE (STRIP) NEGATIVE; KETONES NEGATIVE; LEUKOCYTES MODERATE; NITRITE NEGATIVE; PROTEIN (STRIP) NEGATIVE; SPECIFIC GRAVITY 1.006 (1.000-1.030); UROBILINOGEN 0.2 MG/DL (0.2-1.0)
[2016-10-17 17:43] LABS: BACTERIA 1+ /HPF; EPITHELIAL CELLS RARE /HPF; HYALINE CASTS 0-5 /LPF; MUCUS TRACE /LPF; RED BLOOD CELLS 0-5 /HPF (0-5)
[2016-10-17] MEDS ORDERED: ASPIR 8181 M1 PO (18:35)
[2016-10-17] MEDS ORDERED: LISINOPRIL5 MG PO (18:38)
[2016-10-17] MEDS ORDERED: ONE-A-DAY ESSE1 EAC1 PO (18:39)
[2016-10-17] MEDS ORDERED: DEMADEX20 MG PO (18:40)
[2016-10-17] MEDS ORDERED: KLOR-CON M2020 MEQ PO (18:40)
[2016-10-17] MEDS ORDERED: MYCOSTATIN 100,60 ML PO (18:42)
[2016-10-17] MEDS ORDERED: COMPAZINE10 MG PO (18:43)
[2016-10-17 21:30] LABS: DIGOXIN 1.4 ng/mL (0.8-2.0)
[2016-10-17 21:35] LABS: HEMATOCRIT 31.5 % (36.0-46.0); MCV 87.3 FL (83-99)
[2016-10-18] VITALS (12 sets, daily range): BP systolic 86–127; BP diastolic 44–84
[2016-10-18 06:11] LABS: HEMATOCRIT 27.1 % (36.0-46.0); MCH 28.5 PG (29.0-34.0); MCHC 32.1 G/DL (30.0-36.0); MCV 88.9 FL (83-99); MEAN PLAT.VOLUME 8.5 uM^3 (9.5-12.4); PLATELET COUNT 355 K/uL (156-360); RBC DIS.WIDTH-CV 16.2 % (11.8-14.6); RBC DIS.WIDTH-SD 52.7 % (39-53); RED BLOOD COUNT 3.05 M/uL (3.80-5.20); WHITE BLOOD COUNT 16.3 K/uL (4.1-10.2)
[2016-10-18 06:36] LABS: ANION GAP 9 MEQ/L (2-14); CHLORIDE 97 MEQ/L (99-109); GFR ESTIMATE (CALCULATED) 27 mL/min/; POTASSIUM 4.9 MEQ/L (3.7-5.4); SAMPLE HEMOLYSIS CHECK 0; SAMPLE ICTERIC CHECK 0; SAMPLE LIPEMIA CHECK 0; SODIUM 133 MEQ/L (136-147); UREA NITROGEN (BUN) 53 mg/dL (9-23)
[2016-10-18 06:39] LABS: GLUCOSE 72 mg/dL (70-99)
[2016-10-18 14:11] LABS: HEMATOCRIT 30.9 % (36.0-46.0)
[2016-10-18 17:15] LABS: HEMATOCRIT 33.1 % (36.0-46.0); MCV 88.5 FL (83-99)
[2016-10-19 04:16] VITALS: BP 92/45
[2016-10-19 06:10] LABS: HEMATOCRIT 31.9 % (36.0-46.0); MCH 26.6 PG (29.0-34.0); MCHC 30.1 G/DL (30.0-36.0); MCV 88.4 FL (83-99); MEAN PLAT.VOLUME 8.3 uM^3 (9.5-12.4); PLATELET COUNT 398 K/uL (156-360); RBC DIS.WIDTH-CV 16.7 % (11.8-14.6); RBC DIS.WIDTH-SD 54.4 % (39-53); RED BLOOD COUNT 3.61 M/uL (3.80-5.20); WHITE BLOOD COUNT 17.1 K/uL (4.1-10.2)
[2016-10-19 06:40] LABS: ANION GAP 9 MEQ/L (2-14); CHLORIDE 101 MEQ/L (99-109); GFR ESTIMATE (CALCULATED) 32 mL/min/; GLUCOSE 79 mg/dL (70-99); POTASSIUM 4.4 MEQ/L (3.7-5.4); SAMPLE HEMOLYSIS CHECK 0; SAMPLE ICTERIC CHECK 0; SAMPLE LIPEMIA CHECK 0; SODIUM 136 MEQ/L (136-147); UREA NITROGEN (BUN) 51 mg/dL (9-23)
[2016-10-19 07:40] VITALS: BP 105/54
[2016-10-19 11:07] VITALS: BP 128/58
[2016-10-19 15:13] VITALS: BP 142/65
[2016-10-19 19:24] VITALS: BP 103/37
[2016-10-19 21:40] VITALS: BP 101/53
[2016-10-20 01:03] VITALS: BP 93/48
[2016-10-20 03:30] VITALS: BP 98/52
[2016-10-20 06:23] LABS: HEMATOCRIT 30.2 % (36.0-46.0); MCH 27.5 PG (29.0-34.0); MCHC 30.8 G/DL (30.0-36.0); MCV 89.3 FL (83-99); MEAN PLAT.VOLUME 8.6 uM^3 (9.5-12.4); PLATELET COUNT 379 K/uL (156-360); RBC DIS.WIDTH-CV 16.7 % (11.8-14.6); RBC DIS.WIDTH-SD 54.7 % (39-53); RED BLOOD COUNT 3.38 M/uL (3.80-5.20); WHITE BLOOD COUNT 16.1 K/uL (4.1-10.2)
[2016-10-20 06:45] LABS: ANION GAP 9 MEQ/L (2-14); CHLORIDE 99 MEQ/L (99-109); GFR ESTIMATE (CALCULATED) 32 mL/min/; GLUCOSE 80 mg/dL (70-99); POTASSIUM 4.2 MEQ/L (3.7-5.4); SAMPLE HEMOLYSIS CHECK 0; SAMPLE ICTERIC CHECK 0; SAMPLE LIPEMIA CHECK 0; SODIUM 132 MEQ/L (136-147); UREA NITROGEN (BUN) 50 mg/dL (9-23)
[2016-10-20 07:42] VITALS: BP 128/60
[2016-10-20 11:00] VITALS: BP 110/53
[2016-10-20 15:17] VITALS: BP 129/56
== END 2016-10-20 16:37 | DRG 812 ==
LOC: EME 12:44 → EDOF 20:33 → ENRESERV 20:34 → 5SOUTH 21:34
PROVIDERS: Emergency Medicine; Hospitalist; Physician Assistant Medical
PROC: 30233N1 Transfusion of Nonautologous Red Blood Cells into Peripheral Vein, Percutaneous Approach (ICD-10-PCS; principal; 2016-10-18)
DX: D62 Acute posthemorrhagic anemia (principal); N17.9 Acute kidney failure, unspecified; I50.32 Chronic diastolic (congestive) heart failure; N30.00 Acute cystitis without hematuria; E87.1 Hypo-osmolality and hyponatremia; B37.0 Candidal stomatitis; I13.0 Hypertensive heart and chronic kidney disease with heart failure and stage 1 through stage 4 chronic kidney disease, or unspecified chronic kidney disease; E66.01 Morbid (severe) obesity due to excess calories; I27.2 Other secondary pulmonary hypertension; J44.9 Chronic obstructive pulmonary disease, unspecified; L89.90 Pressure ulcer of unspecified site, unspecified stage; N18.3 Chronic kidney disease, stage 3 (moderate); M19.90 Unspecified osteoarthritis, unspecified site; I48.0 Paroxysmal atrial fibrillation; K57.30 Diverticulosis of large intestine without perforation or abscess without bleeding; R60.1 Generalized edema; R19.01 Right upper quadrant abdominal swelling, mass and lump; R19.00 Intra-abdominal and pelvic swelling, mass and lump, unspecified site; R26.9 Unspecified abnormalities of gait and mobility; M06.9 Rheumatoid arthritis, unspecified; I25.10 Atherosclerotic heart disease of native coronary artery without angina pectoris; M10.9 Gout, unspecified; K21.9 Gastro-esophageal reflux disease without esophagitis; H40.9 Unspecified glaucoma; Z51.5 Encounter for palliative care; D47.2 Monoclonal gammopathy; Z96.643 Presence of artificial hip joint, bilateral; Z68.41 Body mass index [BMI] 40.0-44.9, adult; Z79.01 Long term (current) use of anticoagulants; Z90.49 Acquired absence of other specified parts of digestive tract; Z85.038 Personal history of other malignant neoplasm of large intestine; I25.2 Old myocardial infarction; Z87.442 Personal history of urinary calculi; Z87.891 Personal history of nicotine dependence
CPT/HCPCS: 71010; 74176; 80048; 80162; 81003; 82272; 82436; 83605; 84133; 84300; 85014; 85018; 85027; 86850; 86900; 86901; 86920; 87040; 87086; 87493; 94640; 94640 76; 94799; 99202; 99281; 99285; C9113; J0696; J7030; J7050; P9016; P9040; P9047